=== PATIENT | male | born 1955 | race Caucasian/White ===

== ENCOUNTER → 2019-08-25 | Outpatient (CLI) | payer OTHER ==
--- NOTE | 2019-08-25 16:47 | PCVCIMAG ---
APPROVED REPORT Indications Bruit Doppler Spectral Velocity Analysis PSV / EDVPSV / EDV ECA (R) 116 / 18 cm/sECA (L) 100 / 14 cm/s dICA (R) 52 / 19 cm/sdICA (L) 63 / 22 cm/s Dorys (R) 59 / 22 cm/smICA (L) 69 / 27 cm/s pICA (R) 61 / 18 cm/spICA (L) 71 / 18 cm/s Bulb (R) 44 / 14 cm/sBulb (L) 63 / 24 cm/s dCCA (R) 78 / 18 cm/sdCCA (L) 74 / 19 cm/s mCCA (R) 86 / 19 cm/smCCA (L) 121 / 24 cm/s Vert (R) 28 / 10 cm/sVert (L) 42 / 10 cm/s ICA/CCA 0.78ICA/CCA 0.96 Real Time B-Mode Imaging Vert. (R)AntegradeVert. (L)Antegrade Findings RIGHT CAROTID: The carotid bulb has mild plaque. The proximal internal carotid artery shows <40% stenosis. The common carotid artery shows no significant stenosis. The external carotid artery shows no significant stenosis. LEFT CAROTID: The carotid bulb has mild plaque. The proximal internal carotid artery shows <40% stenosis. The common carotid artery shows no significant stenosis. The external carotid artery shows no significant stenosis. Conclusion <40% stenosis of the right internal carotid artery with mild plaque. <40% stenosis of the left internal carotid artery with mild plaque.
--- NOTE | 2019-08-27 08:42 | PCVCIMAG ---
APPROVED REPORT Study performed: 08/25/2019 13:10:42 Exam: Stress Echocardiogram Indication: CAD , Hypertension, Hyperlipidemia Patient Location: Echo lab Stress Nurse: Corin Escobar RN Room #: 2 Status: routine Ht: 5 ft 8 in HR: 66 bpm BP: 138/84 mmHg Rhythm: NSR Medical History Medical History: CAD non obstructive, HTN, Hyperlipidemia Cardiac Risk Factors: FHX of CAD, Hyperlipidemia, HTN Previous Cardiac Procedures: NONE Pretest Chest Pain Characteristics: No chest pain Exercise History: Physically active Procedure The patient underwent an Exercise Stress Test using the Dagoberto Protocol. Blood pressure, heart rate, and EKG were monitored. An Echocardiogram was performed by wellfield technician in four stages in quad fashion. At peak stress, four selected images were obtained and placed side by side with resting images for comparison. Stress Test Details Stress Test: Exercise stress testing was performed using a Dagoberto protocol. HR Resting HR: 66 bpmMax Heart Rate (APMHR): 156 bpm Max HR Achieved: 141 bpmTarget HR (85% APMHR): 132 bpm % of APMHR: 90 Recovery HR: 82 bpm HR response to stress: Normal HR response to stress BP Resting BP: 138/84 mmHg Max BP: 176/78 mmHg Recovery BP: 148/79 mmHg BP response to stress: Normal blood pressure response to stress. ECG Resting ECG: Sinus Rhythm Stress ECG: Sinus Rhythm ST Change: Nondiagnostic ST changes Maximum ST Deviation: -1.15 mm Arrhythmia: Rare PVCs Recovery ECG: Sinus Rhythm Recovery ST Change: Non-ischemic Recovery ST Deviation: -0.90 mm Recovery Arrhythmia: None Clinical Reason for Termination: Maximal effort Stress Symptoms: fatigue Exercise duration: 9 min 38 sec Highest Stage Achieved: Stage 4: 4.2 mph at 16% grade. Exercise capacity: 12 METs Overall Exercise Capacity for Age: Good Scale: Active Angina Score: None No complications. Stress ECG Conclusion Briceno Treadmill Score is 14.8 which is Low risk. Pre-Stress Echo The resting Echocardiogram showed normal left ventricular contractility with an estimated Ejection Fraction of about 55-60%. Normal wall motion in all segments on baseline images. Post-Stress Echo The stress Echocardiogram showed normal left ventricular contractility with an estimated Ejection Fraction of about 65-70%. Normal augmentation of wall motion in all segments on post stress images. Clinical No clinical or ECG evidence for ischemia. Conclusion Clinical Response: Non-ischemic Exercise Capacity: Average Stress ECG Response: Non-ischemic Stress Echo Images: Non-ischemic No clinical, EKG or echocardiographic evidence for ischemia. No echocardiographic evidence for exercise induced ischemia. Normal stress echocardiogram with maximal exercise stress. Normal color doppler. No stenosis or regurgitation seen in the mitral,aortic,tricuspid or pulmonic valves. <Conclusion> No clinical, EKG or echocardiographic evidence for ischemia. No echocardiographic evidence for exercise induced ischemia. Normal stress echocardiogram with maximal exercise stress. Normal color doppler. No stenosis or regurgitation seen in the mitral,aortic,tricuspid or pulmonic valves.
== END | disposition home or self-care (01) ==
LOC: PCVCIMAG 13:25
PROVIDERS: ATTEND Internal Medicine Cardiovascular Disease
DX: I65.23 Occlusion and stenosis of bilateral carotid arteries (principal); I25.10 Atherosclerotic heart disease of native coronary artery without angina pectoris; I10 Essential (primary) hypertension; E78.5 Hyperlipidemia, unspecified
CPT/HCPCS: 93325; 93351; 93880